=== PATIENT | male | born 1965 | race Caucasian/White ===

== ENCOUNTER → 2017-08-01 | Outpatient (CLI) | payer BC ==
--- NOTE | 2017-08-01 17:21 | CONS ---
CONSULTATION DATE OF SERVICE: 08/01/2017. A 51-year-old gentleman has been referred from [facility] to check in Sleep Center. 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 He had a sleep study done in 2006. At that time sleep study did not show any abnormalities of respiration, but sleep study showed a latency to REM of 50 minutes, which is slightly shorter than normal REM sleep latency. At the present time nap, patient sometimes snores, especially after using alcohol. His sleep schedule from 10:00 p.m. until 5:45 a.m. on working days and from 11:00 p.m. to 6:30-7:00 am on weekend. No problem with falling asleep, although he watches TV in bedroom. He may wake up from sleep up to 2 times with up to 1 episode of nocturia. He does not take any naps during the day. Central Sleepiness Scale is 4. No history of hypnagogic hallucinations, sleep paralysis or cataplexy. PAST MEDICAL HISTORY: Positive for acid reflux, seasonal allergy. PAST SURGICAL HISTORY: Surgery for nasal septum deviation in 2014. CURRENT MEDICATIONS: Prilosec, Magalis. SOCIAL HISTORY: The patient quit smoking about 10 years ago. Alcohol consumption occasional. FAMILY HISTORY: Mother and father alive and healthy. One brother has diabetes. REVIEW OF SYSTEMS: The patient denied any sleepiness during the day. He does not take any naps. Sometimes awakenings from sleep and snoring. PHYSICAL EXAM: GENERAL Patient in no distress VITAL SIGNS BP 149/98, HR 83, RR 14. Height 5 feet 10-1/2 inches, weight 203.6, BMI 28.7, temperature 98.1. Oxygen saturation at room air 97%. Patient increased his weight around 20 pounds since previous sleep study. HEENT PERRLA, EOMI, evaluation of oropharynx showed close to normal position of the soft palate. Slightly short distance between soft palate and pharyngeal wall. Slight restriction of nasal breathing. NECK Supple, no JVD. Thyroid is not palpable. LUNGS Clear to percussion and to auscultation. Good air exchange. No wheezing or rhonchi. HEART S1, S2 regular. No murmurs, gallops, or rubs. ABDOMEN Soft and nontender. Bowel sounds are present. No organomegaly appreciated. EXTREMITIES No clubbing or cyanosis. NO EXPERIENCE Awake, alert, and oriented X3. Cranial nerves 2 to 7 intact. There is no fasciculation or atrophy. noted. No focal deficits observed. IMPRESSION: 1. Snoring, occasional awakenings from sleep, possible obstructive sleep apnea- hypopnea syndrome, wide neck 17 inches. 2. Overweight, BMI 28.7. 3. Seasonal allergy. 4. Acid reflux. 5. Status post surgical treatment for nasal septum deviation. 6. Slight increasing blood pressure today in the office. 7. Clinically, no symptoms of narcolepsy. No history of cataplexy, sleep paralysis or hypnagogic hallucinations. The patient does not take any naps. Slightly short REM sleep latency 50 minutes could be explained by a different sleep schedule during the sleep study and at home. PLAN: 1. Home sleep apnea test for evaluation of patient breathing during the sleep at the present time. 2. Watching weight. 3. Sleep hygiene with regular time bed for 7.5 hours. 4. No driving if feeling sleepiness. Thank you very much for referring this patient for consultation. Sincerely, Fernando Mckenzie MD, PhD, FAASM Diplomat of [employer] Measurement Psychologist of [facility] [place] MMODL / IJN: [id number] /
== END | disposition home or self-care (01) ==
LOC: SLEEP 15:16
PROVIDERS: ATTEND Internal Medicine
DX: R06.83 Snoring (principal); E66.3 Overweight; J30.2 Other seasonal allergic rhinitis; K21.9 Gastro-esophageal reflux disease without esophagitis; R03.0 Elevated blood-pressure reading, without diagnosis of hypertension; Z98.890 Other specified postprocedural states; Z68.28 Body mass index [BMI] 28.0-28.9, adult; Z87.891 Personal history of nicotine dependence; Z79.899 Other long term (current) drug therapy
CPT/HCPCS: 99211

== ENCOUNTER → 2017-09-19 | Outpatient (CLI) | payer BC ==
--- NOTE | 2017-09-19 16:49 | PN ---
PROGRESS NOTE DATE OF SERVICE: 09/19/2017 51-year-old gentleman has been followed in Sleep Center for treatment of obstructive sleep apnea-hypopnea syndrome. 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 I discussed results of sleep studies with patient in details. He had a home sleep apnea test which showed apnea-hypopnea index 25.3 with oxygen desaturation to 80% and home sleep apnea test may underestimate the severity of respiratory abnormalities during the sleep. Subsequently the patient was started on treatment with auto PAP with range of pressure of 5-20 and he is able to use equipment for the last month without significant problems. He brought his machine with him and I checked CPAP unit. CPAP pressure in the range 5 to 20. Most of the time pressure is 11.6. No significant leak, 6 L/minutes. Apnea- hypopnea index with the machine is only 2.0. The patient never complained of any excessive daytime sleepiness and today while in treatment, his CPAP his [place] Sleepiness Scale is 3. MEDICATIONS: Prilosec. Antihistamines over the counter for allergy. PHYSICAL EXAM: Patient in no distress. BP 127/97, HR 89, RR 16, weight 202.4, temperature 98.2. Oxygen saturation on room air 96%. Oropharynx practically normal position of soft palate. There is some restriction of nasal breathing. Neck Supple, no JVD. Thyroid is not palpable. LUNGS Clear to percussion and to auscultation. Good air exchange. No wheezing or rhonchi. HEART S1, S2 regular. No murmurs, gallops, or rubs. ABDOMEN Soft and nontender. Bowel sounds are present. No organomegaly appreciated. EXTREMITIES No clubbing or cyanosis. PUBLIC AFFAIRS SPECIALIST Awake, alert, and oriented X3. Cranial nerves 2 to 7 intact. There is no fasciculation or atrophy. noted. No focal deficits observed. IMPRESSION: 1. Moderate obstructive sleep apnea-hypopnea syndrome by results of home sleep apnea test on control with auto PAP at the pressure of 11.6 cm of water. Patient demonstrated 100% compliance with treatment. The patient used equipment every night for more than 4 hours. Average usage is 6.6 hours benefitting from treatment. No symptoms of excessive daytime sleepiness. 2. Acid reflux. 3. Seasonal allergy. 4. 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 PLAN: 1. Patient will continue to use CPAP equipment every night for the whole night. 2. He will maintain prescription for all necessary CPAP supplies. 3. 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 No driving if feeling sleepiness. Patient is aware about civil and criminal liability for unsafe driving. The patient knows that he should continue to use his CPAP equipment every night for the whole night for treatment of obstructive sleep apnea. Thank you very much for allowing me to participate in management of your patient. Sincerely, Fernando Mckenzie MD, PhD, FAASM Diplomat of [employer] Pharmacology Teacher of [facility] [place] MMODL / IJN: [id number] /
== END | disposition home or self-care (01) ==
LOC: SLEEP 15:21
PROVIDERS: ATTEND Internal Medicine
DX: G47.33 Obstructive sleep apnea (adult) (pediatric) (principal); K21.9 Gastro-esophageal reflux disease without esophagitis; J30.2 Other seasonal allergic rhinitis; Z99.89 Dependence on other enabling machines and devices; Z79.899 Other long term (current) drug therapy

== ENCOUNTER → 2018-05-22 | Outpatient (CLI) | payer BC ==
--- NOTE | 2018-05-22 18:17 | PN ---
PROGRESS NOTE DATE OF SERVICE: 05/22/2018 This patient is a 52-year-old gentleman who has been followed in Sleep Center for treatment of obstructive sleep apnea-hypopnea syndrome. Patient successfully continues to use his CPAP equipment every night for the whole night without significant problems related to the mask fitting, pressure or humidification. [place] Sleepiness Scale is 3. MEDICATIONS: 1. Lisinopril. 2. Prilosec. 3. Some antihistamines, [id number], for allergies. I checked patient's CPAP unit. Range of the pressure is 5 to 20, average pressure 11.3. Leak is L/minute, which is acceptable. Apnea-hypopnea index is 1.9, which is normal range. Usage for the 6 months is 171/180 nights and 159 nights out of 180 nights for more than 4 hours, average 5.9 hours, which is normal compliance. PHYSICAL EXAMINATION: GENERAL: A pleasant patient in no distress. VITAL SIGNS: BP on the right arm 147/95, on the left arm 142/94, HR 60, RR 16, height 5 feet 10 inches, weight 201, body mass index 28.8, temperature 98.1, oxygen saturation at room air 97%. HEENT: PERRLA, EOMI. Evaluation of oropharynx showed tongue protrudes midline. Practically normal position of soft palate. NECK: Supple. No JVD. Thyroid is not palpable. LUNGS: Clear to percussion and to auscultation. Good air exchange. No wheezing or rhonchi. HEART: S1, S2 regular. No murmurs, gallops or rubs. ABDOMEN: Soft and nontender. Bowel sounds are present. No organomegaly. EXTREMITIES: No clubbing or cyanosis. STUDIO SET UP WORKER: Awake, alert, and oriented X3. Cranial nerves 2 to 7 intact. There is no fasciculation or atrophy. noted. No focal deficits observed. IMPRESSION: 1. Obstructive sleep apnea-hypopnea syndrome. The patient has demonstrated great compliance with treatment, benefitting from treatment. 2. Acid reflux. 3. Seasonal allergies. 4. Hypertension. 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 PLAN: 1. Patient will continue to use CPAP equipment every night for the whole night with the same regimen. 2. Sleep hygiene with regular time in bed for 7-1/2 to 8 hours. 3. No driving if feeling any sleepiness. Precautions related to driving. Patient is aware about civil and criminal liability for unsafe driving. 4. Prescription for all necessary CPAP supplies, including mask, tube, filters. Thank you very much for allowing me to participate in the management of your patient. Sincerely, Fernando Mckenzie MD, PhD, FAASM Diplomat of [place] [employer] Director Field Services of [facility] [place] MMODL / IRENEN: [id number] /
== END ==
LOC: SLEEP 15:58
PROVIDERS: ATTEND Internal Medicine
DX: G47.33 Obstructive sleep apnea (adult) (pediatric) (principal); K21.9 Gastro-esophageal reflux disease without esophagitis; I10 Essential (primary) hypertension; J30.2 Other seasonal allergic rhinitis; Z99.89 Dependence on other enabling machines and devices; Z79.899 Other long term (current) drug therapy

== ENCOUNTER → 2018-11-20 | Outpatient (CLI) | payer BC ==
--- NOTE | 2018-11-20 21:08 | PN ---
PROGRESS NOTE DATE OF SERVICE: 11/20/2018 52-year-old gentleman who has been followed in Sleep Center for treatment of obstructive sleep apnea-hypopnea syndrome. 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 The patient continued to use his CPAP equipment every night for the whole night without any problems related to the machine, getting supplies. No snoring with the machine. [place] Sleepiness Scale today is 3, which is normal. I checked his CPAP unit, range of the pressure 5-20, average pressure 9.4. The usage is every night in 29 out of 30 nights more than 4 hours with average usage is 6.8 hours per night, which is good numbers. Leak is 20 L/minute, which is borderline. Apnea-hypopnea index 1.9 which is normal. MEDICATIONS: Lisinopril, Prilosec, over the counter antihistamines. PHYSICAL EXAM: Patient in no distress. BP 123/87, HR 74, RR 14, height 5 feet 10 inches, weight 194.2 pounds which is 6 pounds less than during the previous visit. Body mass index 27.4, temperature 97.9. Oxygen saturation at room air 97%. HEENT: Oropharynx normal position of soft palate. Neck Supple, no JVD. Thyroid is not palpable. LUNGS Clear to percussion and to auscultation. Good air exchange. No wheezing or rhonchi. HEART: Heart is S1, S2. There is also 10 extrasystoles sometimes in bigeminy. ABDOMEN Soft and nontender. Bowel sounds are present. No organomegaly appreciated. EXTREMITIES No clubbing or cyanosis. INTERN ARCHITECT Awake, alert, and oriented X3. Cranial nerves 2 to 7 intact. There is no fasciculation or atrophy. noted. No focal deficits observed. IMPRESSION: 1. Obstructive sleep apnea-hypopnea syndrome. The patient demonstrated great compliance with treatment. Benefitting from treatment. Normal apnea-hypopnea index reading from the machine. No symptoms of excessive daytime sleepiness. Normal [place] Sleepiness Scale. 2. Hypertension. 3. Extra systoles by auscultation. 4. Acid reflux. 5. Seasonal allergies. 6. 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 PLAN: 1. Patient will continue to use CPAP equipment every night for the whole night. 2. Patient will follow up with his primary care physician for evaluation of his heart. Please consider Holter monitor. Presently no chest pain. No shortness of breath. No dizziness. 3. Sleep hygiene with regular time in bed for 8 hours. 4. Precautions related to driving. 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 No driving if feeling sleepiness. Patient is aware about civil and criminal liability for unsafe driving. 5. I will maintain all necessary prescriptions for CPAP supplies including mask, tube, filters. Thank you very much for allowing me to participate in management of your patient. Sincerely, Fernando Mckenzie MD, PhD, FAASM Diplomat of [place] [employer] Medicine Deputy Commonwealth'S Attorney of [facility] [place] MMODL / IJN: [id number] /
== END | disposition home or self-care (01) ==
LOC: SLEEP 16:19
PROVIDERS: ATTEND Internal Medicine
DX: G47.33 Obstructive sleep apnea (adult) (pediatric) (principal); I10 Essential (primary) hypertension; I49.49 Other premature depolarization; K21.9 Gastro-esophageal reflux disease without esophagitis; J30.2 Other seasonal allergic rhinitis; Z99.89 Dependence on other enabling machines and devices; Z79.899 Other long term (current) drug therapy

== ENCOUNTER → 2019-12-30 | Outpatient (CLI) | payer BC ==
--- NOTE | 2019-12-30 10:16 | US ---
EXAMINATION TYPE: US abdomen complete DATE OF EXAM: 12/30/2019 COMPARISON: NONE CLINICAL HISTORY: R10.11 Abdominal pain Right upper quadrant. Pain and lump on right back EXAM MEASUREMENTS: Liver Length: 15 cm Gallbladder Wall: .3 cm CBD: .5 cm Spleen: 13 cm Right Kidney: 13.5 x 5.8 x 5.3 cm Left Kidney: 11.1 x 5.8 x 5.1 cm Pancreas: Obscured by bowel gas Liver: Increased attenuation Gallbladder: No stones seen Evidence for sonographic Patrick's sign: No CBD: wnl Spleen: wnl Right Kidney: Two cystic areas seen superior pole 2.1 x 2.2 x 2.1cm and mid pole 1.9 x 1.9 x 2.1cm. Left Kidney: wnl Upper IVC: wnl Abd Aorta: wnl The liver is homogenous. The intrahepatic portion of the IVC and proximal abdominal aorta are within normal limits. There is no evidence of cholelithiasis. Common bile duct is unremarkable. The visu alized portions of the pancreas are homogenous. The spleen is unremarkable. Kidneys are symmetric a nd free of hydronephrosis. IMPRESSION: 1. Fatty liver. 2. Right renal cysts.
== END | disposition home or self-care (01) ==
LOC: RADUSWWP 09:34
PROVIDERS: ATTEND Family Medicine
DX: N28.1 Cyst of kidney, acquired (principal); K76.0 Fatty (change of) liver, not elsewhere classified
CPT/HCPCS: 76700